=== PATIENT | female | born 1985 | race Caucasian/White ===

== ENCOUNTER → 2017-06-02 20:34 | Observation (INO) ==
[2017-06-02 17:59] LABS: Bilirubin,Urine Negative (Negative); Blood,Urine Negative (Negative); Clarity,Urine Cloudy (Clear); Color,Urine Dark Yellow (Yellow); Glucose,Urine (UA) Normal (Normal); Ketones,Urine Trace mg/dL (Negative); Leukocyte Esterase,Urine Small (Negative); Nitrite,Urine Negative (Negative); Protein,Urine 30 mg/dL (Neg-Trace); Specific Gravity,Urine > 1.030 (1.010-1.025); Urobilinogen,Urine Normal (Normal)
[2017-06-02 18:01] LABS: Hyaline Casts,Urine Few per lpf (None-Few); Squamous Epithelial Cell,Urine Many per lpf (None-Few); WBC,Urine 30-50 per hpf (0-3)
--- NOTE | 2017-06-02 18:05 | OB/GYN Progress Note ---
Date of Encounter: 06/02/17 Time of Encounter: 18:01 - Assessment and Plan (1) 28 weeks gestation of Current Visit: Yes Status: Acute (2) uterine contractions Current Visit: Yes Status: Acute Repeat exam unchanged. FFN positive. Celestone given. Contractions resolved following PO hydration. Urine culture pending. Pt requesting discharge home. Discharge home with strict PTL precautions. Pt to return tomorrow for repeat celestone. POC discussed with Dr. Galindo. (3) Decreased movement affecting management of mother, antepartum Current Visit: Yes Status: Acute movement felt while in triage. NST reassuring for GA Qualifiers: Fetus number: single or unspecified fetus Qualified Code(s): O36.8190 - Decreased movements, unspecified trimester, not applicable or unspecified Subjective - Subjective Principal diagnosis: Labor Eval Interval history: Ms. Malgorzata Worthington, 32F, , at 28 weeks presents to L&D for decreased movement and abdominal pain and cramping, no bloody discharge. Denies fever. Denies urinary sx. Denies recent intercourse. Labs: Negative: Syphilis, Hep B, HIV, N.Jim, C.Trac Immune: VZV, Rubella Bld Type: A+ Antepartum ROS: loss of fluid, movement normal, contractions Objective - Vital Signs Vital Signs: Intake and Output 06/02/17 06/02/17 06/02/17 07:59 15:59 23:59 Other: Weight 114 kg Patient Weight 06/02/17 23:59 Weight 114 kg - Exam FHR: category 1 FHR comments: FHT reassuring for GA Auscultation: bilateral: normal Abdomen: Present: normal appearance, gravid Cervical dilation: 1-2 Cervix effacement: 50 station: -3 Comments: SSE with small amount thin, white discharge. FFN collected
[2017-06-02 18:08] LABS: Calcium Oxalate Crystals,Urine Present
[2017-06-02 18:09] LABS: Mucus,Urine Many (Few)
[2017-06-02 18:10] LABS: Yeast,Urine Few per hpf (None Seen)
[2017-06-02 18:11] LABS: Bacteria,Urine Moderate per hpf (None-Few)
[~2017-06-02 20:34] MED LIST: Betamethasone Acet/SodPhos 6 MG/ML MDV IM SCH
== END | disposition home or self-care (01) ==
LOC: 1NENULAB
PROVIDERS: ADMIT Obstetrics & Gynecology; ATTEND Obstetrics & Gynecology

== ENCOUNTER 2017-07-31 16:35 | Inpatient (IN) ==
[2017-07-31] MEDS ORDERED: Naloxone 0.4 MG/ML INJ IVP PRN (16:42)
[2017-07-31] MEDS ORDERED: Ondansetron 4 MG/2 ML VIAL IVP PRN (16:42)
[2017-07-31] MEDS ORDERED: Famotidine 20 MG/2 ML VIAL IVP PRN (16:42)
--- NOTE | 2017-07-31 16:47 | OB/GYN History & Physical ---
Date of Encounter: 07/31/17 Time of Encounter: 17:10 Assessment and Plan (1) Non-reactive NST (non-stress test) Current visit: Yes Status: Acute Patient admits to decreased movement. BPP is a 6/8. - Continue to monitor heart tracings. (2) 37 weeks gestation of Current visit: Yes Status: Acute Denies contractions, leakage of vaginal fluid or bleeding. Plan for induction. - IV fluids. - Cytotec - Zofran PRN. - Pain control PRN. (3) Gestational diabetes mellitus Current visit: Yes Status: Acute Hgb A1c on 06/05/2017: 4.6%. Glucose at 81. Controlled. Qualifiers: Gestational diabetes mellitus control: diet-controlled Trimester: third trimester Qualified Code(s): O24.410 - Gestational diabetes mellitus in , diet controlled (4) Back pain Current visit: Yes Status: Chronic No CVA tenderness. Denies fever, chills, dysuria, and hematuria. Pain reproducible upon paraspinal palpation in lower lumbar region. Pain likely muscular in origin. - Pain control PRN. Qualifiers: Back pain location: low back pain Chronicity: chronic Back pain laterality: bilateral Sciatica presence: unspecified whether sciatica present Qualified Code(s): M54.5 - Low back pain; G89.29 - Other chronic pain; G89.29 - Other chronic pain History of Present Illness Chief complaint: NR NST findings HPI: Ms. Worthington is a 32 year old female at 37 wks 2 days gestational age with a PMH of gestational DM A2 that presents for nonreactive NST findings. BPP score of the fetus was 6/8. Unable to visualize breathing. She is complaining that she has felt less movement since yesterday. She also admits that she has been having back pain intermittently throughout her but has intensified in severity since yesterday. She says the pain in located in her lower back, bilateral, lasts about 5 minutes, sharp in nature, and not relieved or aggravated by anything. She denies any fever, chills, dysuria, or hematuria. She denies any [place], changes in vision, chest pain, nausea, vomiting, diarrhea, constipation, or blood in stool. Blood type: A+ GBS: negative. HIV Ab: negative. Trep pallidum Ab: negative Rubella Ab: positive Varicella Ab: positive HepBSAb: non-reactive Hgb A1c on 06/05/2017: 4.6% Past Med Surg Social Fam HX - Past Medical History Medical history: asthma, cancer, GERD, migraine, thyroid disease Psychiatric history: anxiety, bipolar, depression - Social History Smoking Status: Current every day smoker Smokeless Tobacco Status: No Alcohol use: none Drug use: none Obstetrical History - Pregnancies : 5 Para: 3 Term: 3 : 0 Ab's: 2 Livin Medications and Allergies Gabapentin [Neurontin] 600 mg PO TID 06/02/17 [History] Omeprazole Magnesium [Prilosec Otc] 20 mg PO DAILY 07/31/17 [History] Vit Calc,Iron,Folic [ Vitamins] 1 tab PO DAILY 07/31/17 [ History] 3 Allergy/AdvReac Type Severity Reaction Status Date / Time NSAIDS (Non-Steroidal Allergy See Verified 07/31/17 17:49 Anti-Inflamma Comments ibuprofen AdvReac Swelling Verified 07/31/17 17:49 of Lip/Tongue/Throat Exam - Vital Signs Vital signs: BP 122/72. HR 81. - Constitutional Constitutional: well developed, well nourished, no acute distress, obese - HEENT HEENT: EOMI, PERRL, Normocephaly, Mucus Membranes Moist - Neck Neck exam: normal inspection, trachea midline - Lungs Respiratory exam: CTAB - Cardiovascular Cardiovascular exam: RRR, +S1, +S2 - Abdomen Abdomen: Present: bowel sounds normal, gravid, non tender - Extremities Extremities exam: normal capillary refill, pedal edema, radial pulses palpable and symmetrical Deep Tendon Reflex Grade: 2+ Normal - Comments Comments: Neuro: CN II-XII intact. No focal deficits noted. Back: No CVA tenderness bilaterally. Paraspinal tenderness upon palpation of lower lumbar region. Results Result Diagrams: 07/31/17 17:34 07/31/17 17:34 All other labs normal. - Attending Attestation I examined this patient and my medical decision-making was reviewed with the Resident Physician. I agree with the documented findings, disposition and treatment plan as described except to the extent set forth below.
[2017-07-31 17:45] LABS: Basophils % 0.2 %; Eosinophils # 0.1 K/mcL (0.0-0.6); Eosinophils % 0.7 %; Hematocrit 36.2 % (35.3-44.9); Hemoglobin 12.3 g/dL (11.5-15.4); Immature Granulocytes % 1.1 % (0-4); Lymphocytes # 2.2 K/mcL (0.6-4.6); Mean Corpuscular Hemoglobin 32.5 pg (28.0-33.3); Mean Corpuscular Volume 95.8 fL (83.0-100.0); Mean Platelet Volume 9.9 fL (9.4-12.4); Monocytes # 0.9 K/mcL (0.0-1.3); Monocytes % 5.1 %; Neutrophils # 13.4 K/mcL (1.6-8.9); Platelet Count 251 K/mcL (140-400); Red Blood Count 3.78 M/mcL (3.82-4.97); Red Cell Distribution Width 12.9 % (11.5-14.5); Segmented Neutrophils % 79.9 %
[2017-07-31 18:11] LABS: Amphetamine Screen,Urine Negative ng/mL (Cutoff=1000); Barbiturate Screen,Urine Negative ng/mL (Cutoff=200); Benzodiazepines Screen,Urine Negative ng/mL (Cutoff=200); Cannabinoid Screen,Urine Positive ng/mL (Cutoff = 50); Cocaine Screen,Urine Negative ng/mL (Cutoff= 300); Opiate Screen,Urine Negative ng/mL (Cutoff=300); Phencyclidine Screen,Urine Negative ng/mL (Cutoff=25)
[2017-07-31] MEDS ORDERED: miSOPROStol 25 MCG TABLET PO ONE (18:20)
--- NOTE | 2017-07-31 21:11 | OB Labor Progress Note ---
Date of Encounter: 07/31/17 Time of Encounter: 21:08 Labor Progress Note - Subjective Subjective: Patient sitting in bed. Denies any pain. Discussed POC with patient. Patient denies any questions or concerns. - Cervix Cervix: 5/100/0 - Heart Tones Heart Tones: 145 bpm moderate variability +15x15 accels no decels noted. Cat. 1 tracing - [place] O[place]hut: 1-2 min apart - Interventions Interventions: SVE, AROM large amount of clear fluid noted. Patient tolerated well. - Plan Plan: Continue labor management Patient may have epidural for pain management if desires.
[2017-07-31] MEDS: Ringers Solution, Lactated 1,000 ML IVC SCH (21:12)
--- NOTE | 2017-07-31 21:20 | Anesthesia Evaluation PreOp ---
Date of Encounter: 07/31/17 Time of Encounter: 21:20 - Past History Planned Operation: RICKIE Cardiac History: Denies any Significant Hx Pulmonary History: Smoker SCREW DOWN History: Denies Any Significant HX Other Medical History: Diabetes Type II (gestational) : Yes (37) Test: Positive Alcohol Use: none Drug use: none Medications and Allergies Gabapentin [Neurontin] 600 mg PO TID 06/02/17 [History] Omeprazole Magnesium [Prilosec Otc] 20 mg PO DAILY 07/31/17 [History] Vit Calc,Iron,Folic [ Vitamins] 1 tab PO DAILY 07/31/17 [ History] 3 Allergy/AdvReac Type Severity Reaction Status Date / Time NSAIDS (Non-Steroidal Allergy See Verified 07/31/17 17:49 Anti-Inflamma Comments ibuprofen AdvReac Swelling Verified 07/31/17 17:49 of Lip/Tongue/Throat - Meds/Allergy Pre-op Review Medications Reviewed: Yes Allergies Reviewed: Yes Beta Blockers on Current Med List: No Anesthesia Results - Labs 07/31/17 17:34 07/31/17 17:34 Anesthesia Exam 122/72 81 18 Height: 65 NPO (# of Hours): current fluids Pain Scale: 10 - HEENT Pupil (Motor): Pupils equal Mallampati: II Teeth: Normal (poor dentition) Oral Opening: Greater than 3 - SCREW DOWN LOC: Oriented SCREW DOWN Motor: Normal RUE, Normal LUE, Normal RLE, Normal LLE, Normal Face SCREW DOWN Sensory: Normal: RUE, LUE, RLE, LLE, Face - Cardiac Rhythm: Regular Murmur: None JVD: No Carotid Bruit: No - Pulmonary Breath Sounds: bilateral Clear Respiratory Effort: Symmetrical Anesthesia Assess/Plan ASA Score: 2 Modified Lantry Scale for Level of Consciousness: Anixous, agitated or restless Anesthetic Plan: Regional Monitoring Plan: Standard Monitors
[2017-07-31] MEDS ORDERED: Epidural Premix (fent/bupiv) 110 ML EP SCH (21:30)
--- NOTE | 2017-07-31 22:00 | Anesthesia Procedures ---
Date of Encounter: 07/31/17 Time of Encounter: 21:25 Procedures: Anesthesia - Epidural/Spinal Patient ID/Chart reviewed: Yes Patient examined: Yes OB Eval: Gestational age: 37 OB Eval: : 4 OB Eval: Hx Para: 3 OB Eval: Dilated at (cm): 5 OB Eval: Contractions: Non-stressed pattern Consent Obtained: Yes Supplemental Oxygen: None/Room Air Site Prep: Aseptic Technique, Sterile prep and drape, Povidone-Iodine 1% Patient position: upright Local Anesthetic: Lidocaine 1% Amount of Local Anesthetic used: 3 Touhy Needle Gauge: 18 Touhy Needle Depth (cm): 8 Catheter Depth at Skin (cm): 12 Test Dose (1.5% Lido + Epi): Volume given (mls): 3 Test Dose Result: Negative Loading Dose Administered: Thru Catheter Infusion Rate (mls/hr): [address]: Tegaderm, Tape Interspace Used: L4-L5 Loss of Resistance (JANEEN): Yes Blood: No CSF: No Paresthesia: No Procedure: tolerated well see nursing notes VSS
[2017-07-31] MEDS ORDERED: Oxytocin 20 units/ LR 1000 mL 20 UNIT/1,000 ML BAG IVC SCH (23:30)
--- NOTE | 2017-07-31 23:43 | OB Labor Progress Note ---
Date of Encounter: 07/31/17 Time of Encounter: 23:41 Labor Progress Note - Subjective Subjective: Patient comfortable with epidural in place. Patient denies any needs at this time. - Cervix Cervix: 7/100/0 - Heart Tones Heart Tones: 145 bpm moderate variability - Debary Debary: 2-3 min apart - Interventions Interventions: SVE - Plan Plan: Continue labor management
[2017-08-01] MEDS: Ringers Solution, Lactated 1,000 ML IVC SCH (00:56)
--- NOTE | 2017-08-01 03:19 | OB/GYN Procedure Note ---
Delivery - Delivery Date: 08/01/17 Provider: Aggie Irizarry Intrapartum events: none Delivery induction: misoprostol Delivery augmentation: rupture of membranes, pitocin Delivery monitor: external FHT, external uterine Anesthesia: epidural Estimated Blood Loss: 300 - Infant (s) Infant A Delivery Date: 08/01/17 Delivery Time: 02:48 Presentation: vertex Position: MARIANO Route of delivery: Gender: Female Viability: Viable Pounds: 5 Ounces: 14 Weight Gram: 2675 kg at 1 minute: 8 at 5 mins: 9 Shoulder Dystocia: not encountered Specimens collected: cord blood Placenta: spontaneous Cord: nuchal cord (x1 loose), 3 umbilical vessels - Repair Episiotomy: none Laceration Description: None - Complications Delivery complications: none - Disposition Mom disposition: stable in LDR [place] disposition: stable in LDR - Comments Comments: Called to LDR. Patient complete and pushing with contractions. Patient prepped for delivery. Under maternal effort patient spontaneously delivered a viable female over an intact perineum. A nuchal x1 that was loose was reduced prior to delivery of shoulder. No meconium or shoulder dystocia was noted. was placed on maternal abdomen. Cord was clamped and cut after pulsation ceased. Spontaneous delivery of intact placenta. placed skin to skin. Pericare provided. All counts correct. Both mother and infant stable in LDR.
[2017-08-01] MEDS ORDERED: Lanolin 7 G OINT...G. TP PRN (04:27)
[2017-08-01] MEDS ORDERED: Oxytocin 20 units/ LR 1000 mL 20 UNIT/1,000 ML BAG IVC SCH (04:27)
[2017-08-01] MEDS: Acetaminophen 325 MG TABLET PO PRN ×3 (07:02→23:42)
[2017-08-01] MEDS: Prenatal Vit/FA 1 EACH TABLET PO SCH (09:32)
--- NOTE | 2017-08-02 04:33 | Anesthesia Progress Note ---
Date of Encounter: 08/02/17 Time of Encounter: 04:23 Anesthesia Note - Note Note: 08/02/17 04:28 called to BS, 1 in diameter dark bruise noted at epidural insertion site, afebrile, patient mobile without comp, no radiculopathy noted, patient scheduled to have BPS this AM, C/O very uncomfortable, will medicate IV pain med , patient verbalized understanding if symptoms worsen to seek tx. supportive therapy at this time. 1mg Dilaudid IV given at this time. 08/02/17 04:33
[2017-08-02] MEDS ORDERED: *HR* HYDROmorphone (PF) 1 MG/ML SYRINGE ONE (04:35)
[2017-08-02 07:17] LABS: Basophils % 0.3 %; Eosinophils # 0.2 K/mcL (0.0-0.6); Eosinophils % 1.7 %; Hematocrit 30.4 % (35.3-44.9); Immature Granulocytes % 1.3 % (0-4); Lymphocytes # 2.5 K/mcL (0.6-4.6); Lymphocytes % 17.9 %; Mean Corpuscular HGB Conc 32.9 g/dL (31.6-35.5); Mean Corpuscular Hemoglobin 31.9 pg (28.0-33.3); Mean Corpuscular Volume 97.1 fL (83.0-100.0); Mean Platelet Volume 10.1 fL (9.4-12.4); Monocytes # 0.7 K/mcL (0.0-1.3); Monocytes % 5.2 %; Neutrophils # 10.4 K/mcL (1.6-8.9); Platelet Count 206 K/mcL (140-400); Red Blood Count 3.13 M/mcL (3.82-4.97); Segmented Neutrophils % 73.6 %
--- NOTE | 2017-08-02 09:06 | Discharge Summary ---
Date of Encounter: 08/02/17 Time of Encounter: 09:04 - Discharge Diagnosis (1) Status post vaginal delivery Priority: Primary Status: Acute (2) 37 weeks gestation of Priority: Secondary Status: Resolved (3) Non-reactive NST (non-stress test) Priority: Secondary Status: Resolved (4) Gestational diabetes mellitus Priority: Secondary Status: Chronic Qualifiers: Gestational diabetes mellitus control: diet-controlled Trimester: third trimester Qualified Code(s): O24.410 - Gestational diabetes mellitus in , diet controlled - Discharge Medications Prescriptions: Acetaminophen [Tylenol] 650 mg PO Q6HR PRN #60 tablet PRN Reason: Mild Pain Docusate [Colace] 100 mg PO BID #30 capsule Ferrous Sulfate 325 mg PO DAILY #30 tablet Home Medications: Gabapentin [Neurontin] 600 mg PO TID 06/02/17 [History] Omeprazole Magnesium [Prilosec Otc] 20 mg PO DAILY 07/31/17 [History] Vit Calc,Iron,Folic [ Vitamins] 1 tab PO DAILY 07/31/17 [ History] Acetaminophen [Tylenol] 650 mg PO Q6HR PRN #60 tablet 08/02/17 [Rx] Docusate [Colace] 100 mg PO BID #30 capsule 08/02/17 [Rx] Ferrous Sulfate 325 mg PO DAILY #30 tablet 08/02/17 [Rx] Lanolin [Lansinoh] 1 appl TP TID PRN oint...g. 08/02/17 [Rx] Allergies/Adverse Reactions: 3 Allergy/AdvReac Type Severity Reaction Status Date / Time NSAIDS (Non-Steroidal Allergy See Verified 07/31/17 17:49 Anti-Inflamma Comments ibuprofen AdvReac Swelling Verified 07/31/17 17:49 of Lip/Tongue/Throat Data Procedures and tests throughout hospitalization: Laboratory Tests 07/31/17 07/31/17 07/31/17 17:34 17:34 17:57 WBC 16.8 H RBC 3.78 L Hgb 12.3 Hct 36.2 MCV 95.8 MCH 32.5 MCHC 34.0 RDW 12.9 Plt Count 251 MPV 9.9 Immature Gran % 1.1 Seg Neutrophils % 79.9 Lymphocytes % 13.0 Monocytes % 5.1 Eosinophils % 0.7 Basophils % 0.2 Neutrophils # 13.4 H Lymphocytes # 2.2 Monocytes # 0.9 Eosinophils # 0.1 Basophils # 0.0 Glucose 81 Urine Opiates Screen Negative Ur Barbiturates Screen Negative Ur Phencyclidine Scrn Negative Ur Amphetamines Screen Negative U Benzodiazepines Scrn Negative Urine Cocaine Screen Negative U Marijuana (THC) Screen Positive H 08/02/17 06:27 WBC 14.2 H RBC 3.13 L Hgb 10.0 L D Hct 30.4 L MCV 97.1 MCH 31.9 MCHC 32.9 RDW 13.0 Plt Count 206 MPV 10.1 Immature Gran % 1.3 Seg Neutrophils % 73.6 Lymphocytes % 17.9 Monocytes % 5.2 Eosinophils % 1.7 Basophils % 0.3 Neutrophils # 10.4 H Lymphocytes # 2.5 Monocytes # 0.7 Eosinophils # 0.2 Basophils # 0.0 Glucose Urine Opiates Screen Ur Barbiturates Screen Ur Phencyclidine Scrn Ur Amphetamines Screen U Benzodiazepines Scrn Urine Cocaine Screen U Marijuana (THC) Screen Labs on day of discharge: Labs from last 24 hours 08/02/17 06:27 WBC 14.2 H RBC 3.13 L Hgb 10.0 L D Hct 30.4 L MCV 97.1 MCH 31.9 MCHC 32.9 RDW 13.0 Plt Count 206 MPV 10.1 Immature Gran % 1.3 Seg Neutrophils % 73.6 Lymphocytes % 17.9 Monocytes % 5.2 Eosinophils % 1.7 Basophils % 0.3 Neutrophils # 10.4 H Lymphocytes # 2.5 Monocytes # 0.7 Eosinophils # 0.2 Basophils # 0.0 Date of admission: 07/31/17 16:35 Primary care physician: SUNDAY Sidhu Consults: 08/01/17 04:27 Consult to Expense Analyst [CONS] Routine Comment: Vaginal delivery, consult needed Discharging clinician: Feli Vidal Anticipated date of discharge: 08/02/17 - Patient Status Disposition: Home, Self-Care Condition: Good Functional capacity at discharge: independent ambulation Overall status at discharge: patient is progressing back to baseline - Discharge Instructions Follow Up With: Daniella Robins CNP [Primary Care Provider] - - Diet and Activity Activity: increase activity as tolerated Diet: advance to your usual diet Hospital Course Reason for admission: induction of labor Delivery: Episiotomy: none Laceration: none Other procedures: none complications: none Discharge diagnosis: delivery baby: female Hospital course: Ms. Worthington is a 32 year old female at 37 wks 2 days gestational age with a PMH of gestational DM A2 that presented to L&D for nonreactive NST findings. BPP score of the fetus was 6/8, unable to visualize breathing. She was complaining that she has felt less movement since the day prior. She also admited that she has been having back pain intermittently throughout her but has intensified in severity since the day prior. Patient was admitted for induction of labor. She had AROM with clear fluid, she received an epidural and pitocin was started. Patient progressed in labor until she was complete and began pushing with contractions. Under maternal effort patient spontaneously delivered a viable female infant over an intact perineum. A nuchal x1 that was loose was reduced prior to delivery of shoulder. No meconium or shoulder dystocia was noted. was placed on maternal abdomen. Cord was clamped and cut after pulsation ceased. Spontaneous delivery of intact placenta. The patient has been stable since delivery and will be discharged home with prescriptions for colace, iron and tylenol. Patient is unable to have BPS prior to discharge as the consent had not been signed in time. Patient is tearful and upset that she can't have this done stating "I can't have anymore kids." She states no other control method has worked for her. Advised her to call the OB office to schedule her BPS when as soon as she is able and to abstain from sexual intercourse until at leas 6 weeks pp. Advised patient that there also is the option for condoms and spermicide. Time Attestation: Total time spent providing and/or coordinating discharge services: Time Spent: Less than 30 minutes Exam - Constitutional Vitals: Temp Pulse Resp BP Pulse Ox 97.6 F 70 14 109/73 98 08/02/17 04:00 08/02/17 04:00 08/02/17 04:00 08/02/17 04:00 08/02/17 04:00 General appearance IM: A&O X 3, pleasant, answers questions appropriately - Respiratory Respiratory exam: Present: CTAB. Absent: respiratory distress - Cardiovascular Cardiovascular exam IM: Present: RRR, +S1, +S2. Absent: irregular rhythm, systolic murmur - GI/Abdominal GI/Abdominal exam IM: normal bowel sounds, soft, tenderness - Rectal Rectal exam: deferred - Uterine Tone: Firm Uterus Position: 2 Fingers Below Umbilicus - Extremities Exam Extremities exam IM: Present: normal capillary refill, normal inspection, radial pulses palpable and symmetrical. Absent: calf tenderness, joint swelling , pedal edema - Neurological Exam Neurological exam: alert, oriented X3, no focal deficits - Psychiatric Additional comments: tearful, upset she can't have her BPS today. States she doesn't want anymore kids and no other control worked for her. - Attending Attestation I examined this patient and my medical decision-making was reviewed with the Resident Physician. I agree with the documented findings, disposition and treatment plan as described except to the extent set forth below.
[2017-08-02] MEDS: Prenatal Vit/FA 1 EACH TABLET PO SCH (09:15)
[2017-08-02 10:18] VITALS: BP 108/66
== END 2017-08-02 13:35 | disposition home or self-care (01) | DRG 560 ==
LOC: 1NENULAB → OBSVTOIN 16:35 → 1NENUOBS 08-01 06:01
PROVIDERS: ADMIT Student in an Organized Health Care Education/Training Program; ATTEND Student in an Organized Health Care Education/Training Program